=== PATIENT | female | born 1965 | race Caucasian/White ===

== ENCOUNTER 2016-07-09 16:37 | Emergency (ER) | payer OTHER, SELFPAY ==
[2016-07-09 16:44] VITALS: TEMP 99.2
--- NOTE | 2016-07-09 18:32 | C.PDOC ---
History Of Present Illness 51 y/o female, who denies any past medical history, presents to the ED complaining of 3 day history of dry cough, body aches, subjective fever, headache, epigastric discomfort, malaise, and nausea. She denies any vomiting, diarrhea, throat pain, neck pain/stiffness, rash, chest pain, shortness of breath, or other complaints. Time Seen by Provider: 07/09/16 17:47 Chief Complaint (Nursing): Headache History Per: Patient History/Exam Limitations: no limitations Onset/Duration Of Symptoms: Days (3), Persistent Current Symptoms Are (Timing): Still Present Recent travel outside of the [place]: No Past Medical History Reviewed: Historical Data, Nursing Documentation, Vital Signs Vital Signs: Last Vital Signs Temp 99.2 F 07/09/16 16:43 Pulse 112 H 07/09/16 16:43 Resp 20 07/09/16 16:43 BP 131/75 07/09/16 16:43 Pulse Ox 98 07/09/16 18:41 - Medical History PMH: Hypercholesterolemia Surgical History: No Surg Hx Family History: States: Unknown Family Hx - Social History Hx Tobacco Use: No Hx Alcohol Use: No Hx Substance Use: No - Immunization History Hx Tetanus Toxoid Vaccination: No Hx Influenza Vaccination: No Hx Pneumococcal Vaccination: No Review Of Systems Except As Marked, All Systems Reviewed And Found Negative. Constitutional: Positive for: Fever (subjective), Malaise, Other (body aches) ENT: Negative for: Throat Pain Cardiovascular: Negative for: Chest Pain Respiratory: Positive for: Cough. Negative for: Shortness of Breath, Sputum Gastrointestinal: Positive for: Nausea, Abdominal Pain (epigastric). Negative for: Vomiting, Diarrhea Musculoskeletal: Negative for: Neck Pain (or stiffness) Skin: Negative for: Rash Neurological: Positive for: Headache Physical Exam - Physical Exam Appears: Non-toxic, No Acute Distress, Other (uncomfortable) Skin: Normal Color, Warm, Dry, No Rash Head: Atraumatic, Normacephalic Eye(s): bilateral: Normal Inspection, PERRL Ear(s): Bilateral: Normal Nose: Normal Oral Mucosa: Dry Throat: Normal, No Erythema, No Exudate Neck: Normal ROM, Supple, No Other (meningial signs) Chest: Symmetrical Cardiovascular: Rhythm Regular Respiratory: Normal Breath Sounds, No Rales, No Rhonchi, No Wheezing Gastrointestinal/Abdominal: Normal Exam, Bowel Sounds (normal), Soft, No Tenderness, No Guarding, No Rebound Back: Normal Inspection, No CVA Tenderness Extremity: Normal ROM, No Tenderness, No Swelling Neurological/Psych: Oriented x3, Normal Speech, Normal Cognition ED Course And Treatment O2 Sat by Pulse Oximetry: 98 (ra) Pulse Ox Interpretation: Normal Medical Decision Making Medical Decision Making: Plan: * Influenza A B Patient positive for flu. Treated with Pepcid PO, Zofran PO, and Motrin PO. will d/c home with tamiflu and clinic f/u on tuesday Disposition Counseled Patient/Family Regarding: Diagnosis, Need For Followup, Rx Given - Disposition Referrals: [facility] [Outside] [facility] [Outside] Disposition: HOME/ ROUTINE Disposition Time: 18:56 Condition: IMPROVED Additional Instructions: Drink increased fluids. more bed rest. Take medications as prescribed. Follow up in clinic on Tuesday;.Return to ER for any worse symptoms. 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 - Scribe Statement The provider has reviewed the documentation as recorded by the Scribe (Giulia Melton) All medical record entries made by the Scribe were at my direction and personally dictated by me. I have reviewed the chart and agree that the record accurately reflects my personal performance of the history, physical exam, medical decision making, and the department course for this patient. I have also personally directed, reviewed, and agree with the discharge instructions and disposition.
[2016-07-09 19:12] VITALS: BP 132/78; PULSE 84; RESP 16; O2SAT 97
== END 2016-07-09 19:12 | disposition home or self-care (01) ==
LOC: C.ER 16:37
DX: J11.1 Influenza due to unidentified influenza virus with other respiratory manifestations (principal)